=== PATIENT | female | born 1980 | race African-American/Black ===

== ENCOUNTER 2019-12-08 12:55 | Emergency (ER) | payer SELFPAY ==
[~2019-12-08] VITALS: Ht 157.5 cm; Wt 79.0 kg
[2019-12-08] MEDS ORDERED: ONDANSETRON 4MG ODT PO ONE (14:45)
[2019-12-08 14:49] LABS: BASOPHILS % 0.9 % (0.0-2.0); EOSINOPHILS % 1.6 % (0.0-5.0); HEMATOCRIT. 40.5 % (36.0-48.0); HEMOGLOBIN. 13.7 g/dL (12.0-16.0); LYMPHOCYTES % 32.7 % (20.0-50.0); MEAN CORPUSCULAR HEMOGLOBIN 31.5 pg (28.0-32.0); MEAN CORPUSCULAR VOLUME 93.1 fL (81.0-99.0); MEAN PLATELET VOLUME 7.7 fl (7.4-10.4); MONOCYTES % 6.5 % (2.0-8.0); NEUTROPHILS % 58.3 % (40.0-76.0); PLATELET 380 x1000/uL (130-400); RED BLOOD CELL COUNT 4.35 mill/uL (4.2-5.4); RED CELL DISTRIBUTION WIDTH 14.9 % (11.6-14.6)
[2019-12-08 14:56] LABS: PROTHROMBIN TIME 9.9 sec (9.6-11.0)
[2019-12-08 14:57] LABS: CHLORIDE 109 mEq/L (98-107)
[2019-12-08 15:00] LABS: HCG SCREEN NEGATIVE
[2019-12-08 15:09] LABS: B-HCG QUANTITATIVE < 1 mIU/mL (<3)
[2019-12-08 15:12] LABS: CLARITY URINE CLOUDY (CLEAR); COLOR URINE YELLOW (YELLOW); KETONES URINE NEGATIVE (NEGATIVE); LEUKOCYTE ESTERASE URINE 1+ (NEGATIVE); NITRITE URINE NEGATIVE (NEGATIVE); OCCULT BLOOD URINE TRACE (NEGATIVE); PROTEIN URINE NEGATIVE (NEGATIVE); SPECIFIC GRAVITY URINE 1.021 (1.005-1.030)
[2019-12-08 18:11] VITALS: BP 103/68
== END 2019-12-08 18:14 | disposition home or self-care (01) ==
LOC: ER 12:55
DX: N39.0 Urinary tract infection, site not specified (principal); R11.10 Vomiting, unspecified
CPT/HCPCS: 36415; 80053; 81003; 81025; 84702; 84703; 85025; 99283